=== PATIENT | male | born 1980 ===

== ENCOUNTER 2022-07-17 23:58 | Emergency (ER) | payer SELFPAY ==
--- NOTE | 2022-07-18 09:58 | Emergency Department Report ---
ED General Adult HPI - General Chief complaint: Nausea/Vomiting/Diarrhea Stated complaint: AB PAIN/DIZZINESS/ Time Seen by Provider: 07/18/22 09:13 Source: patient Mode of arrival: Ambulatory Limitations: No Limitations - History of Present Illness Initial comments: 42-year-old male with no significant past medical history reports to the ER with complaints of abdominal discomfort with diarrhea since last Sunday. Patient reports having diarrhea few hours after eating a sandwich that had some cheese on it. Patient denies any vomiting, no nausea. Patient reports his pain is a 5 out of 10 currently. Does not report anything that makes it worse. Patient reports 2-3 episodes of diarrhea since Sunday per day. Patient reports he is still able to maintain hydration and eat foods with no concerns. No other acute symptoms reported at this time. - Related Data Allergies Allergy/AdvReac Type Severity Reaction Status Date / Time No Known Allergies Allergy Verified 07/18/22 02:03 ED Review of Systems ROS: Stated complaint: AB PAIN/DIZZINESS/ Other details as noted in HPI Comment: All other systems reviewed and negative Gastrointestinal: abdominal pain, diarrhea. denies: nausea, vomiting ED Past Medical Hx - Past Medical History Previous Medical History?: No ED Physical Exam - General Limitations: No Limitations General appearance: alert, in no apparent distress - Head Head exam: Present: atraumatic, normocephalic - Eye Eye exam: Present: normal appearance - ENT ENT exam: Present: mucous membranes moist - Neck Neck exam: Present: normal inspection - Respiratory Respiratory exam: Present: normal lung sounds bilaterally. Absent: respiratory distress - Cardiovascular Cardiovascular Exam: Present: regular rate, normal rhythm. Absent: systolic murmur, diastolic murmur, rubs, gallop - GI/Abdominal GI/Abdominal exam: Present: soft, tenderness (Upper abdominal area, negative Galindo sign,), normal bowel sounds. Absent: distended, guarding, rebound - Rectal Rectal exam: Present: deferred - Extremities Exam Extremities exam: Present: normal inspection - Back Exam Back exam: Present: normal inspection - Neurological Exam Neurological exam: Present: alert, oriented X3 - Psychiatric Psychiatric exam: Present: normal affect, normal mood - Skin Skin exam: Present: warm, dry, intact, normal color. Absent: rash ED Course Vital Signs 07/18/22 07/18/22 07/18/22 02:05 05:41 08:09 Temperature 98.5 F 98.6 F 98.4 F Pulse Rate 65 62 Respiratory 18 16 18 Rate Blood Pressure 114/74 Blood Pressure 115/71 117/74 [Right] O2 Sat by Pulse 100 99 Oximetry 07/18/22 12:26 Temperature Pulse Rate 80 Respiratory 18 Rate Blood Pressure Blood Pressure 110/70 [Right] O2 Sat by Pulse 99 Oximetry ED Medical Decision Making - Lab Data Result diagrams: 07/18/22 10:08 07/18/22 10:08 - Medical Decision Making 42-year-old male no significant past medical history having abdominal pain with diarrhea since last Sunday. No decrease in hydration or eating consumption reported. On physical exam patient does have upper abdominal tenderness noted. No Galindo sign noted. No other acute abdominal signs noted. CBC with no acute process. CMP with no acute processpatient ate something prior to having his blood work takingreason for elevated blood glucose. No correction is needed. Lipase negative. Patient reports he does not want a thing for pain currently his pain is 5 out of 10. Patient is stable for discharge home. Patient given instructions as far as diet consumption to help with his diarrhea. Patient also given information about [id number] antidiarrhea medication. Patient agrees with plan of care and verbalized understanding. Patient informed if symptoms are to get worse to report back to the ER. Vital Signs 07/18/22 07/18/22 07/18/22 02:05 05:41 08:09 Temperature 98.5 F 98.6 F 98.4 F Pulse Rate 65 62 Respiratory 18 16 18 Rate Blood Pressure 114/74 Blood Pressure 115/71 117/74 [Right] O2 Sat by Pulse 100 99 Oximetry 07/18/22 12:26 Temperature Pulse Rate 80 Respiratory 18 Rate Blood Pressure Blood Pressure 110/70 [Right] O2 Sat by Pulse 99 Oximetry Lab Results 07/18/22 07/18/22 Range/Units 10:08 10:08 WBC 4.9 (4.5-11.0) K/mm3 RBC 4.59 (3.65-5.03) M/mm3 Hgb 14.0 (11.8-15.2) gm/dl Hct 40.3 (35.5-45.6) % MCV 88 (84-94) fl MCH 31 (28-32) pg MCHC 35 H (32-34) % RDW 12.8 L (13.2-15.2) % Plt Count 175 (140-440) K/mm3 Lymph % (Auto) 32.9 (13.4-35.0) % [place] % (Auto) 14.5 H (0.0-7.3) % Eos % (Auto) 1.3 (0.0-4.3) % Baso % (Auto) 0.6 (0.0-1.8) % Lymph # (Auto) 1.6 (1.2-5.4) K/mm3 [place] # (Auto) 0.7 (0.0-0.8) K/mm3 Eos # (Auto) 0.1 (0.0-0.4) K/mm3 Baso # (Auto) 0.0 (0.0-0.1) K/mm3 Seg Neutrophils % 50.7 (40.0-70.0) % Seg Neutrophils # 2.5 (1.8-7.7) K/mm3 Sodium 138 (137-145) mmol/L Potassium 5.0 (3.6-5.0) mmol/L Chloride 102.2 (98-107) mmol/L Carbon Dioxide 29 (22-30) mmol/L Anion Gap 12 mmol/L BUN 7 L (9-20) mg/dL Creatinine 0.8 (0.8-1.3) mg/dL Estimated GFR > 60 ml/min BUN/Creatinine Ratio 9 % Glucose 181 H (75-100) mg/dL Calcium 9.2 (8.4-10.2) mg/dL Total Bilirubin 0.40 (0.1-1.2) mg/dL AST 22 (5-40) units/L ALT 47 (7-56) units/L Alkaline Phosphatase 108 (35-129) units/L Total Protein 5.9 L (6.3-8.2) g/dL Albumin 4.3 (3.9-5) g/dL Albumin/Globulin Ratio 2.7 % Lipase 21 (13-60) units/L Critical care attestation.: If time is entered above; I have spent that time in minutes in the direct care of this critically ill patient, excluding procedure time. ED Disposition Clinical Impression: Diarrhea Qualifiers: Diarrhea type: unspecified type Qualified Code(s): R19.7 - Diarrhea, unspecified Abdominal pain Qualifiers: Abdominal location: generalized Qualified Code(s): R10.84 - Generalized abdominal pain Disposition: 01 HOME / SELF CARE / HOMELESS Is pt being admited?: No Condition: Stable Instructions: Diarrhea, Adult, Abdominal Pain, Adult, Food Choices to Help Relieve Diarrhea, Adult Referrals: [facility] [Outside] - 3-5 Days
[2022-07-18 10:50] LABS: Basophils % (Auto) 0.6 % (0.0-1.8); Eosinophils # (Auto) 0.1 K/mm3 (0.0-0.4); Eosinophils % (Auto) 1.3 % (0.0-4.3); Hematocrit 40.3 % (35.5-45.6); Lymphocytes # (Auto) 1.6 K/mm3 (1.2-5.4); Lymphocytes % (Auto) 32.9 % (13.4-35.0); Mean Corpuscular HGB Conc 35 % (32-34); Mean Corpuscular Volume 88 fl (84-94); Monocytes # (Auto) 0.7 K/mm3 (0.0-0.8); Monocytes % (Auto) 14.5 % (0.0-7.3); Platelet Count 175 K/mm3 (140-440); Red Blood Count 4.59 M/mm3 (3.65-5.03); Red Cell Distribution Width 12.8 % (13.2-15.2)
[2022-07-18 10:59] LABS: Alanine Aminotransferase 47 units/L (7-56); Albumin 4.3 g/dL (3.9-5); BUN/Creatinine Ratio 9; Blood Urea Nitrogen 7 mg/dL (9-20); Calcium 9.2 mg/dL (8.4-10.2); Hemolysis Index 1
[2022-07-18 12:27] VITALS: BP 110/70
== END 2022-07-18 12:28 | disposition home or self-care (01) ==
LOC: ED 23:58
DX: R10.9 Unspecified abdominal pain (principal); R19.7 Diarrhea, unspecified
CPT/HCPCS: 36415; 80053; 83690; 85025; 99283